=== PATIENT | female | born 1995 | race Caucasian/White ===

== ENCOUNTER 2017-11-02 19:30 | Emergency (ER) | payer SELFPAY ==
[~2017-11-02] VITALS: Ht 157.5 cm; Wt 91.0 kg
[2017-11-02 19:36] VITALS: BP 138/80
== END 2017-11-02 21:40 | disposition left against medical advice (07) ==
LOC: ER 21:36
DX: F10.129 Alcohol abuse with intoxication, unspecified (principal); R11.10 Vomiting, unspecified; Z53.21 Procedure and treatment not carried out due to patient leaving prior to being seen by health care provider